=== PATIENT | male | born 1995 ===

== ENCOUNTER 2016-11-24 19:50 | Emergency (ER) | payer OTHER ==
[2016-11-24] MEDS ORDERED: Fluorescein Sodium TOPICAL* 1 MG TEST OPHTHALMIC ONE (20:06)
[2016-11-24] MEDS ORDERED: Tetracaine 0.5% OPTH.SOL 4 ML* 1 DROP BTL LEFT EYE ONE (20:06)
[2016-11-24] MEDS ORDERED: BSS OPTH.SOL* BTL OPHTHALMIC ONE (20:07)
[2016-11-24] MEDS ORDERED: Ibuprofen TAB* 600 MG PO ONE (20:08)
[2016-11-24] MEDS ORDERED: Tetracaine 0.5% OPTH.SOL 15ML* BTL ONE (20:13)
--- NOTE | 2016-11-24 20:18 | UC ---
Eye Complaint HPI - HPI Summary HPI Summary: Patient was in a grappling tournament. took a finger to the left eye, finished his match, cant open his eye do to the light, feels like ther is something in it. - History of Current Complaint Chief Complaint: UCEye Stated Complaint: EYE INJURY Time Seen by Provider: 11/24/16 20:01 Hx Obtained From: Patient Onset/Duration: Sudden Onset, Lasting Hours Timing: Constant Severity Initially: Severe Severity Currently: Severe Location of Injury: Conjunctiva, Sclera Character: Throbbing, Foreign Body Sensation Aggravating Factor(s): Light Alleviating Factor(s): Nothing Associated Signs And Symptoms: Positive: Photophobia - Allergies/Home Medications Allergies/Adverse Reactions: Allergies Allergy/AdvReac Type Severity Reaction Status Date / Time Eggs or Egg-derived Products Allergy Severe Anaphylatic Verified 11/24/16 19:58 Shock NUTS Allergy Severe Anaphylatic Uncoded 11/24/16 19:58 Shock Home Medications: Home Medications Epinephrine [Epipen 2-Alfredo] 0.3 mg IM PRN 11/24/16 [History] PMH/Surg Hx/FS Hx/Imm Hx Previously Healthy: Yes - Surgical History Surgical History: Yes Surgery Procedure, Year, and Place: RIGHT CLAVICLE FX REPAIR - Family History Known Family History: Negative: Cardiac Disease, Hypertension - Social History Alcohol Use: None Substance Use Type: None Smoking Status (MU): Never Smoked Tobacco Review of Systems Constitutional: Negative Skin: Negative Eyes: Blurred Vision, Eye Redness, Photophobia ENT: Negative Respiratory: Negative Cardiovascular: Negative Gastrointestinal: Negative Genitourinary: Negative Motor: Negative Neurovascular: Negative Musculoskeletal: Negative Neurological: Headache Psychological: Negative All Other Systems Reviewed And Are Negative: Yes Physical Exam Triage Information Reviewed: Yes Appearance: Well-Appearing, Well-Nourished, Pain Distress Vital Signs: Initial Vital Signs Temp 98 F 11/24/16 19:52 Pulse 87 11/24/16 19:52 Resp 16 11/24/16 19:52 BP 132/75 11/24/16 19:52 Pulse Ox 98 11/24/16 19:52 Vital Signs Reviewed: Yes Eyes: Positive: Conjunctiva Inflamed, Discharge - tearing, Other: - fluorescene shows large abraision of the left eye, accross the iris ENT Exam: Normal Dental Exam: Normal Neck exam: Normal Respiratory Exam: Normal Cardiovascular Exam: Normal Abdominal Exam: Normal Bowel Sounds: Positive: Present Musculoskeletal Exam: Normal Neurological Exam: Normal Psychological Exam: Normal Skin Exam: Normal Eye Complaint Course/Dx - Course Course Of Treatment: Hx obtained, exam performed meds reviewed, eye exam performed, KEVYN, visual acuity is 20/50 bilaterally, patient did state that the letters with more blurry with the affected eye, peripheral vision grossly normal. no increase in the feeling of eye pressure. tetracaine temporarily relieved eye pain. erythromycin cream applied and dispensed. - Differential Dx/Diagnosis Differential Diagnosis/HQI/PQRI: Conjunctivitis, Corneal Abrasion, Foreign Body , Penetrating Injury, Uveitis Provider Diagnoses: Corneal abrasion. finger to the eye Discharge - Discharge Plan Condition: Stable Disposition: HOME Patient Education Materials: Corneal Abrasion (ED) Forms: *Work Release Referrals: Clarence Valadez MD [Medical Doctor] - Additional Instructions: 1. apply the eye cream TID for 7 days 2. Follow up with Dr Valadez on saturday, if you wake up tomorrow with increased pressure in your eye, purulent drainage, stabbing pain, decreased vision, report to [facility] for further evaluation. 3. COntinue with ibuprofen for pain and swelling 4. wear the eye patch for eye rest.
[2016-11-24] MEDS ORDERED: Erythromycin OPTH OINT* APPLIC OINT LEFT EYE ONE (20:55)
== END 2016-11-24 21:00 | disposition home or self-care (01) ==
LOC: UCEAST 19:50
DX: S05.02XA Injury of conjunctiva and corneal abrasion without foreign body, left eye, initial encounter (principal); X58.XXXA Exposure to other specified factors, initial encounter; Z91.012 Allergy to eggs; Z91.018 Allergy to other foods
CPT/HCPCS: 99203; A9270-GY; G0463